=== PATIENT | female | born 1945 | race Caucasian/White ===

== ENCOUNTER 2022-10-01 11:17 | Emergency (ER) | payer MEDICAID ==
[~2022-10-01] VITALS: Ht 167.6 cm; Wt 90.7 kg
[2022-10-01 11:21] VITALS: BP_SYST 189
[2022-10-01] MEDS ORDERED: KETOROLAC TROMETHAMINE 30 MG VIAL IM ONE (11:30)
[2022-10-01 11:57] LABS: BASOPHILS % (AUTO) 0.3 % (0.0-2.0); EOSINOPHILS # (AUTO) 0.3 K/uL (0.0-0.4); EOSINOPHILS % (AUTO) 3.1 % (0.0-4.0); HEMATOCRIT 37.4 % (36-48); HEMOGLOBIN 12.8 g/dL (12.0-16.0); LYMPHOCYTES # (AUTO) 2.1 K/uL (1.0-5.5); LYMPHOCYTES % (AUTO) 20.2 % (20.5-51.5); MEAN CORPUSCULAR HEMOGLOBIN 29 pg (27-31); MEAN CORPUSCULAR HGB CONC 34 % (32-36); MEAN CORPUSCULAR VOLUME 85 fL (79.0-98.0); MONOCYTES # (AUTO) 0.7 K/uL (0.0-1.0); NEUTROPHILS # (AUTO) 7.1 K/uL (1.8-7.7); NEUTROPHILS % (AUTO) 69.4 % (40.0-70.0); PLATELET COUNT (AUTO) 258 K/uL (130-430); RED CELL DISTRIBUTION WIDTH 13.7 % (9.0-15.0); WHITE BLOOD COUNT (AUTO) 10.2 K/uL (4.8-10.8)
[2022-10-01 12:07] LABS: ANION GAP 11 (5-15); CALCIUM 8.6 mg/dL (8.4-11.0); CHLORIDE 104 mmol/L (98-107); CREATININE 0.77 mg/dL (0.55-1.30); GLUCOSE 100 mg/dL (70-99); UREA NITROGEN, BLOOD 17 mg/dL (8-21)
[2022-10-01 12:11] LABS: ALANINE AMINOTRANSFERASE 29 U/L (12-78); ALBUMIN 3.7 g/dL (3.4-4.8); AMYLASE 83 U/L (0-100); ASPARTATE AMINOTRANSFERASE 50 U/L (10-37); C-REACTIVE PROTEIN QUANT 1.9 mg/dL (0-0.5); LIPASE 237 U/L (73-393); TOTAL BILIRUBIN 0.7 mg/dL (0.0-1.0)
[2022-10-01 12:27] LABS: BILIRUBIN,URINE NEGATIVE (NEGATIVE); BLOOD, URINE 3+ (NEGATIVE); CLARITY/URINE CLOUDY (CLEAR); COLOR,URINE BROWN (YELLOW); GLUCOSE,URINE NEGATIVE (NEGATIVE); KETONES,URINE NEGATIVE (NEGATIVE); LEUKOCYTE ESTERASE ,URINE 3+ (NEGATIVE); NITRITE, URINE POSITIVE (NEGATIVE); PH,URINE 6.5 (5.0-8.0); PROTEIN URINE 3+ (NEGATIVE); UROBILINOGEN,URINE 0.2 (0.2-1.0)
[2022-10-01 12:38] LABS: BACTERIA,URINE FEW /HPF (None Seen); RBC,URINE >100 /HPF (0-3); WBC,URINE >100 /HPF (0-3)
[2022-10-01] MEDS ORDERED: IBUP-1969 PO (14:48)
[2022-10-01] MEDS ORDERED: NITR-85 PO (14:48)
[2022-10-01] MEDS ORDERED: cefTRIAXone 1 GM in LIDOCAINE 1%, 20 ML MDV 2.1 ML IM ONE (15:00)
[2022-10-01 15:58] VITALS: BP_SYST 162
== END 2022-10-01 16:00 | disposition home or self-care (01) ==
LOC: SED 11:17
DX: N10 Acute pyelonephritis (principal); K92.1 Melena
CPT/HCPCS: 99285; 74176; 80053; 81000; 82150; 83690; 85025; 86140; 87086; 36415; 76376; 96372; 83605; J0696; J1885; J2001

== ENCOUNTER 2023-02-01 16:40 | Emergency (ER) | payer MEDICAID ==
[~2023-02-01] VITALS: Ht 147.3 cm; Wt 66.7 kg
[~2023-02-01 16:40] MED LIST: IBUP-1969 PO; NITR-85 PO
[2023-02-01 17:09] VITALS: BP_SYST 125; PULSE 66; RESP 16; TEMP 97.4; O2SAT 97
[2023-02-01] MEDS ORDERED: CEPH250C PO (17:09)
[2023-02-01 17:53] VITALS: BP_SYST 123; PULSE 62; RESP 18; TEMP 97.6; O2SAT 97
== END 2023-02-01 17:54 | disposition home or self-care (01) ==
LOC: SED 16:40
DX: L60.0 Ingrowing nail (principal); M79.674 Pain in right toe(s); Z79.899 Other long term (current) drug therapy
CPT/HCPCS: 99283

== ENCOUNTER 2023-06-16 16:12 | Emergency (ER) | payer MEDICAID ==
[~2023-06-16] VITALS: Ht 149.9 cm; Wt 77.1 kg
[~2023-06-16 16:12] MED LIST changes: +CEPH250C PO
[2023-06-16 16:42] VITALS: BP_SYST 119; PULSE 66; RESP 24; TEMP 97.7; O2SAT 97
[2023-06-16] MEDS ORDERED: ALBMDI INH (17:58)
[2023-06-16] MEDS ORDERED: ZIT250 PO (17:58)
[2023-06-16] MEDS ORDERED: DEXT15LI PO (17:58)
[2023-06-16] MEDS ORDERED: AZITHROMYCIN 250 MG TABLET PO ONE (18:00)
[2023-06-16 18:31] LABS: COVID19 ANTIGEN SOFIA FIA NEGATIVE (NEGATIVE)
[2023-06-16 18:32] LABS: INFLUENZA TYPE A Negative (NEGATIVE); INFLUENZA TYPE B NEGATIVE (NEGATIVE)
[2023-06-16 18:48] VITALS: BP_SYST 119; PULSE 66; RESP 24; TEMP 97.7; O2SAT 97
== END 2023-06-16 18:48 | disposition home or self-care (01) ==
LOC: SED 16:12
DX: J40 Bronchitis, not specified as acute or chronic (principal); R05.9 Cough, unspecified; Z79.899 Other long term (current) drug therapy; Z20.822 Contact with and (suspected) exposure to COVID-19
CPT/HCPCS: 99284; 71046; 87426; 36415; 87804 ×2; Q0144